=== PATIENT | male | born 1965 | race Caucasian/White ===

== ENCOUNTER 2023-03-26 02:43 | Emergency (ER) | payer SELFPAY | END 2023-03-26 03:30 | disposition home or self-care (01) | LOC: BURERS 02:43 | DX: S51.812A Laceration without foreign body of left forearm, initial encounter (principal); I10 Essential (primary) hypertension; W22.8XXA Striking against or struck by other objects, initial encounter; Y92.65 Oil rig as the place of occurrence of the external cause; Z23 Encounter for immunization | CPT/HCPCS: 12002; 90471 ==